=== PATIENT | male | born 1995 | race Caucasian/White ===

== ENCOUNTER 2021-01-10 16:02 | Emergency (ER) | payer OTHER ==
[~2021-01-10] VITALS: Ht 190.5 cm; Wt 117.9 kg
[2021-01-10 16:12] VITALS: BP 145/89
[2021-01-10 16:24] VITALS: BP 145/89
--- NOTE | 2021-01-10 16:24 | NUR ---
NO NURSING INTERVENTIONS PERFORMED ON PT
--- NOTE | 2021-01-10 16:24 | NUR ---
Patient discharged with v/s stable. Written and verbal after care instructions given and explained. Patient verbalized understanding. Ambulatory with by parent. All questions addressed prior to discharge. Advised to follow up with PMD.
== END 2021-01-10 16:22 | disposition home or self-care (01) ==
LOC: MED 16:02 → EDBD 16:02 → MED 16:22
DX: R45.1 Restlessness and agitation (principal); Z88.0 Allergy status to penicillin
CPT/HCPCS: 99283